=== PATIENT | female | born 1980 | race Caucasian/White ===

== ENCOUNTER 2018-10-03 10:35 | Emergency (ER) | payer OTHER ==
--- OUTSIDE RECORDS SUMMARY | 2018-10-03 10:37 | XMS REPORT ---
:1980 [facility] [address] [place] [address] [place] [id number] Care Team Providers Name Role Phone Unavailable Unavailable Unavailable Problems This patient has no known problems. Allergies, Adverse Reactions, Alerts This patient has no known allergies or adverse reactions. Medications This patient has no known medications.
--- NOTE | 2018-10-03 12:04 | ER ---
Nurse's Notes [facility] Name: Susy Mulligan Age: 38 yrs Sex: Female : 1980 Arrival Date: 10/03/2018 Time: 10:39 Bed 10 Private MD: Out, [facility] Diagnosis: Radiculopathy, cervical region Presentation: 10/03 10:53 Presenting complaint: Patient states: Pain in neck with tingling to right middle finger aj and left arm, and pain to knees, ankles and toes since June. Currently being treated by Dr Rojas and Pain management for same complaints. Patient states "I've been waiting a month to get in for an MRI and I am tired of waiting." Ambulated in with steady gait. Transition of care: patient was not received from another setting of care. Onset of symptoms Onset of symptoms was June 2018. Risk Assessment: Do you want to hurt yourself or someone else? Patient reports no desire to harm self or others. Initial Sepsis Screen: Does the patient meet any 2 criteria? No. Patient's initial sepsis screen is negative. Does the patient have a suspected source of infection? No. Patient's initial sepsis screen is negative. Care prior to arrival: None. 10:53 Method Of Arrival: Ambulatory aj 10:53 Acuity: DUSTIN 5 aj Triage Assessment: 10:57 General: Appears in no apparent distress. comfortable, Behavior is calm, cooperative, aj appropriate for age. Pain: Complains of pain in back of neck, right arm, left arm, right leg and left leg. Neuro: Level of Consciousness is awake, alert, obeys commands, Oriented to person, place, time, situation, Appropriate for age. Neuro: Reports paresthesias in dorsal aspect of distal phalanx of right middle finger, dorsal aspect of middle phalanx of right middle finger, dorsal aspect of proximal phalanx of right middle finger, palmar aspect of distal phalanx of right middle finger, palmar aspect of middle phalanx of right middle finger and palmar aspect of proximal phalanx of right middle finger. Respiratory: Airway is patent Respiratory effort is even, unlabored, Respiratory pattern is regular, symmetrical. Derm: Skin is intact, is healthy with good turgor, Skin is pink, warm \\T\\ dry. normal. Musculoskeletal: Reports pain in left hand, left arm, right leg and left leg. 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 - Social history:: Smoking status: Patient/guardian denies using tobacco. - Ebola Screening: : Patient negative for fever greater than or equal to 101.5 degrees Fahrenheit, and additional compatible Ebola Virus Disease symptoms Patient denies exposure to infectious person Patient denies travel to an Ebola-affected area in the 21 days before illness onset No symptoms or risks identified at this time. - Family history:: not pertinent. Screenin:35 Abuse screen: Denies threats or abuse. Denies injuries from another. Nutritional iw screening: No deficits noted. Tuberculosis screening: No symptoms or risk factors identified. Fall Risk None identified. Assessment: 11:00 General: Appears in no apparent distress. Behavior is calm, cooperative. Pain: iw Complains of pain in head and neck. Neuro: Level of Consciousness is awake, alert, obeys commands, Oriented to person, place, time, situation. Cardiovascular: Patient's skin is warm and dry. Respiratory: Respiratory effort is even, unlabored, Respiratory pattern is regular. Derm: Skin is intact, is healthy with good turgor. Musculoskeletal: Range of motion: intact in all extremities. Vital Signs: 10:57 BP 128 / 94; Pulse 91; Resp 18; Temp 97.7; Pulse Ox 100% on R/A; Weight 65.77 kg; aj Height 5 ft. 4 in. (162.56 cm); 10:57 Body Mass Index 24.89 (65.77 kg, 162.56 cm) aj ED Course: 10:39 Patient arrived in ED. mr 10:39 Out, [facility] is Private Physician. mr 10:56 Triage completed. aj 10:57 Arm band placed on left wrist. Patient placed in waiting room, Patient notified of wait aj time. 11:00 Patient has correct armband on for positive identification. iw 11:12 Ida Car, RN is Primary Nurse. iw 11:14 Mark Anthony Wellington MD is Attending Physician. yuliya 12:03 Stanton Rojas MD is Referral Physician. yuliya 12:36 No provider procedures requiring assistance completed. Patient did not have IV access iw during this emergency room visit. Administered Medications: 12:17 Drug: TORadol 60 mg Route: IM; Site: left gluteus; iw 12:35 Follow up: Response: No adverse reaction iw 12:18 Drug: Decadron 10 mg Route: IM; Site: left gluteus; iw 12:35 Follow up: Response: No adverse reaction iw Outcome: 12:03 Discharge ordered by MD. yuliya 12:36 Discharged to home ambulatory. iw 12:36 Condition: good 12:36 Discharge instructions given to patient, Instructed on discharge instructions, follow up and referral plans. medication usage, Demonstrated understanding of instructions, follow-up care, medications, Prescriptions given X 2. 12:37 Patient left the ED. iw Signatures: Jazmine Kaufman, RN RN Mark Anthony Gill MD MD cha Rivera, Mary mr Ida Car RN RN iw Corrections: (The following items were deleted from the chart) 10:59 10:57 Arm band placed on left wrist. Patient placed in an exam room, rowan donahue
--- NOTE | 2018-10-03 12:04 | EDPHYS ---
Physician Documentation [facility] Name: Susy Mulligan Age: 38 yrs Sex: Female : 1980 Arrival Date: 10/03/2018 Time: 10:39 Bed 10 Private MD: Out, [facility] ED Physician Mark Anthony Wellington HPI: 10/03 11:59 This 38 yrs old Female presents to ER via Ambulatory with complaints of Pain. yuliya 11:59 The patient or guardian complains of decreased range of motion, pain. The symptoms are yuliya located at the C3, C4, C5, C6 and C7. Onset: The symptoms/episode began/occurred 3 day(s) ago. Context: The problem was sustained at an unknown location. neck pain, hx of radiculopathy. Associated signs and symptoms: The patient has no apparent associated signs or symptoms. Severity of symptoms: At their worst the symptoms were mild, moderate, in the emergency department the symptoms are unchanged. 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 - Social history:: Smoking status: Patient/guardian denies using tobacco. - Ebola Screening: : Patient negative for fever greater than or equal to 101.5 degrees Fahrenheit, and additional compatible Ebola Virus Disease symptoms Patient denies exposure to infectious person Patient denies travel to an Ebola-affected area in the 21 days before illness onset No symptoms or risks identified at this time. - Family history:: not pertinent. ROS: 11:59 Constitutional: Negative for fever, chills, and weight loss, Eyes: Negative for injury, yuliya pain, redness, and discharge, ENT: Negative for injury, pain, and discharge, Cardiovascular: Negative for chest pain, palpitations, and edema, Respiratory: Negative for shortness of breath, cough, wheezing, and pleuritic chest pain, Abdomen/GI: Negative for abdominal pain, nausea, vomiting, diarrhea, and constipation, Back: Negative for injury and pain, : Negative for injury, bleeding, discharge, and swelling, MS/Extremity: Negative for injury and deformity, Skin: Negative for injury, rash, and discoloration, Neuro: Negative for headache, weakness, numbness, tingling, and seizure. 11:59 Neck: Positive for pain with movement. Exam: 11:59 Constitutional: This is a well developed, well nourished patient who is awake, alert, yuliya and in no acute distress. Head/Face: Normocephalic, atraumatic. Eyes: Pupils equal round and reactive to light, extra-ocular motions intact. Lids and lashes normal. Conjunctiva and sclera are non-icteric and not injected. Cornea within normal limits. Periorbital areas with no swelling, redness, or edema. ENT: Nares patent. No nasal discharge, no septal abnormalities noted. Tympanic membranes are normal and external auditory canals are clear. Oropharynx with no redness, swelling, or masses, exudates, or evidence of obstruction, uvula midline. Mucous membranes moist. Chest/axilla: Normal chest wall appearance and motion. Nontender with no deformity. No lesions are appreciated. Cardiovascular: Regular rate and rhythm with a normal S1 and S2. No gallops, murmurs, or rubs. Normal PMI, no JVD. No pulse deficits. Respiratory: Lungs have equal breath sounds bilaterally, clear to auscultation and percussion. No rales, rhonchi or wheezes noted. No increased work of breathing, no retractions or nasal flaring. Abdomen/GI: Soft, non-tender, with normal bowel sounds. No distension or tympany. No guarding or rebound. No evidence of tenderness throughout. Back: No spinal tenderness. No costovertebral tenderness. Full range of motion. Skin: Warm, dry with normal turgor. Normal color with no rashes, no lesions, and no evidence of cellulitis. MS/ Extremity: Pulses equal, no cyanosis. Neurovascular intact. Full, normal range of motion. Neuro: Awake and alert, GCS 15, oriented to person, place, time, and situation. Cranial nerves II-XII grossly intact. Motor strength 5/5 in all extremities. Sensory grossly intact. Cerebellar exam normal. Normal gait. Psych: Awake, alert, with orientation to person, place and time. Behavior, mood, and affect are within normal limits. 11:59 Neck: C-spine: appears grossly normal, Thyroid: appears normal, Trachea: is midline with no obvious abnormalities, ROM/movement: pain, that is mild, Lymph nodes: no appreciated lymphadenopathy. Vital Signs: 10:57 BP 128 / 94; Pulse 91; Resp 18; Temp 97.7; Pulse Ox 100% on R/A; Weight 65.77 kg; aj Height 5 ft. 4 in. (162.56 cm); 10:57 Body Mass Index 24.89 (65.77 kg, 162.56 cm) aj MDM: 11:14 Patient medically screened. [facility] 12:06 Data reviewed: vital signs, nurses notes. [facility] Administered Medications: 12:17 Drug: TORadol 60 mg Route: IM; Site: left gluteus; iw 12:35 Follow up: Response: No adverse reaction iw 12:18 Drug: Decadron 10 mg Route: IM; Site: left gluteus; iw 12:35 Follow up: Response: No adverse reaction iw Disposition: 10/03/18 12:03 Discharged to Home. Impression: Radiculopathy, cervical region. - Condition is Stable. - Discharge Instructions: Cervical Radiculopathy, Cervical Radiculopathy, [id number], Radicular Pain. - Prescriptions for Tylenol- Codeine #3 300-30 mg Oral Tablet - take 2 tablets by ORAL route every 6 hours As needed; 20 tablet. Valium 2 mg Oral Tablet - take 1 tablet by ORAL route every 8 hours As needed; 20 tablet. Dexamethasone 0.75 mg Oral Tablet - take 2 tablet by ORAL route 2 times per day; 20 tablet. Motrin IB 200 mg Oral Tablet - take 2 tablet by ORAL route every 6 hours As needed as needed with food; 28 tablet. - Medication Reconciliation Form, Thank You Letter, Antibiotic Education, Prescription Opioid Use form. - Follow up: Private Physician; When: 2 - 3 days; Reason: Recheck today's complaints, Continuance of care, Re-evaluation by your physician. Follow up: Stanton Rojas MD; When: 2 - 3 days; Reason: Recheck today's complaints, Continuance of care, Re-evaluation by your physician. - Problem is new. - Symptoms have improved. Signatures: Jazmine Kaufman, RN RN Mark Anthony Gill MD MD cha Williams, Irene, RN RN iw Corrections: (The following items were deleted from the chart) 12:37 12:03 10/03/2018 12:03 Discharged to Home. Impression: Radiculopathy, cervical region. iw Condition is Stable. Forms are Medication Reconciliation Form, Thank You Letter, Antibiotic Education, Prescription Opioid Use. Follow up: Private Physician; When: 2 - 3 days; Reason: Recheck today's complaints, Continuance of care, Re-evaluation by your physician. Follow up: Stanton Rojas; When: 2 - 3 days; Reason: Recheck today's complaints, Continuance of care, Re-evaluation by your physician. Problem is new. Symptoms have improved. yuliya
[2018-10-03] MEDS ORDERED: KETOROLAC 30 MG/ML INJ ONE (12:21)
[2018-10-03] MEDS ORDERED: DEXAMETHASONE 10 MG/ML VIAL ONE (12:21)
== END 2018-10-03 12:37 | disposition home or self-care (01) ==
LOC: ER 10:35
DX: M54.12 Radiculopathy, cervical region (principal); F41.9 Anxiety disorder, unspecified; Z88.1 Allergy status to other antibiotic agents; Z88.2 Allergy status to sulfonamides
CPT/HCPCS: 96372; 99283; J1100